=== PATIENT | male | born 1995 | race Caucasian/White ===

== ENCOUNTER 2020-02-24 12:23 | Emergency (ER) | payer SELFPAY ==
[~2020-02-24] VITALS: Ht 170.2 cm; Wt 78.0 kg
[2020-02-24 12:33] VITALS: BP 139/90; Ht 170.2 cm; Wt 78.0 kg
== END 2020-02-24 14:02 | disposition home or self-care (01) ==
LOC: ED 12:23
DX: S93.601A Unspecified sprain of right foot, initial encounter (principal); X58.XXXA Exposure to other specified factors, initial encounter; Y93.89 Activity, other specified; Y92.89 Other specified places as the place of occurrence of the external cause; Y99.8 Other external cause status
CPT/HCPCS: Q0092